=== PATIENT | female | born 1990 | race Caucasian/White ===

== ENCOUNTER 2016-10-05 06:41 | Emergency (ER) | payer BC ==
--- NOTE | ~2016-10-05 | ER ---
PATIENT'S NAME: LOLITA VILLATORO [facility] AGE: 26 Y [address] ROOM: [place] [address] LOCATION: [facility] ADMIT DATE: 10/05/2016 ER/Outpatient Report DISCHARGE DATE: 10/05/2016 FAMILY PHYSICIAN: PHYSICIAN, NO ATTENDING PHYSICIAN: Hugo Paniagua CHIEF COMPLAINT: Ankle pain. I saw this patient in conjunction with Dr. Mccauley, resident. Please see her dictation for complete encounter details. I have personally evaluated this patient. Vital signs: Blood pressure 140/86, pulse 85, respiratory rate 16, temperature 98.5, and SpO2 is 98% on room air. No obvious emergency medical condition exists. She did slip down a rope, but only has injury to her left ankle. The ankle is tender anteriorly with some ecchymosis and edema. No clear tenderness of the posterior aspect of the fibula or head of the 5th metatarsal. There is some tenderness at the tip of the lateral malleolus, however. X-rays were obtained and reviewed by myself, no fractures. We will place her in a walking boot/splint and have her follow up with her primary care or Orthopedics. Discussed appropriate management including ice, anti- inflammatories, and range of motion exercises. All questions answered, and the patient was discharged in good condition. MD MONTSERRAT PHAM/karla /[id number] d: 10/05/1654 t: 10/16/16 0621, OUTPATIENT REPORT
--- NOTE | ~2016-10-05 | ER ---
PATIENT'S NAME: LOLITA VILLATORO [facility] AGE: 26 Y [address] ROOM: [place] [address] LOCATION: [facility] ADMIT DATE: 10/05/2016 ER/Outpatient Report DISCHARGE DATE: 10/05/2016 FAMILY PHYSICIAN: PHYSICIAN, NO ATTENDING PHYSICIAN: Hugo Hadley Time of Arrival: 6:41 a.m. Time of Evaluation: 6:45 a.m. CHIEF COMPLAINT: Left ankle pain. HISTORY OF PRESENT ILLNESS: This is a 26-year-old otherwise healthy female, who presented to the ER with left ankle pain after falling. She reports that she was working out at the gym 30 minutes prior to the arrival and was doing rope climbs when she fell from a height of less than 12 inches. She reports that she fell at an angle on her foot, and did not fall directly down. She was not able to ambulate on the ankle afterwards, but reports that she did not really try given the pain. She did not take anything for pain prior to coming into the ER. She denies any numbness or tingling in her toes currently. PAST MEDICAL HISTORY: Unremarkable. SOCIAL HISTORY: She denies illicit drug use or tobacco use. Occasional alcohol use. MEDICATIONS: None. ALLERGIES: NO KNOWN DRUG ALLERGIES. REVIEW OF SYSTEMS: As per HPI. PHYSICAL EXAMINATION: VITAL SIGNS: Pulse rate was 85, respiratory rate 16, and temperature 98.5. She is 98% on room air. GENERAL: A 26-year-old female appearing in stated age, no apparent distress, alert and oriented x3. EXTREMITIES: Left lower extremity: She has 2+ DP pulses. Normal sensation of all toes. Normal strength in the toes. Significant edema over the lateral PATIENT'S NAME: LOLITA VILLATORO [facility] AGE: 26 Y [address] ROOM: [place], [place] [address] LOCATION: [facility] ADMIT DATE: 10/05/2016 ER/Outpatient Report DISCHARGE DATE: 10/05/2016 FAMILY PHYSICIAN: PHYSICIAN, NO ATTENDING PHYSICIAN: Hugo Hadley aspect of her foot. Tenderness to palpation over the distal lateral malleolus as well as over the lateral dorsal portion of her foot. No bruising or erythema noted. IMAGING DATA: X-ray of the left ankle obtained negative for acute fracture. IMPRESSION: Left ankle sprain. EMERGENCY DEPARTMENT COURSE AND PLAN: The patient is given 800 mg of ibuprofen in the ED. Discussed ankle sprain and proper management including icing several times daily, alternating ibuprofen 800 mg every 8 hours with Tylenol 1 g every 8 hours over the next week. Discussed stretching regularly and followup with her primary care provider. Additionally, she was fitted with an Aircast and given crutches for ambulation over the next week. Handouts given on walking with crutches and ankle sprains. The patient was also seen by Dr. Hugo Hadley, who saw and evaluated the patient, and agrees with the assessment and plan. SLAVA LARSON MD FOR HUGO HADLEY MD CW/modl /[id number] I have seen and evaluated this patient personally. I have reviewed the plan of care as noted above and have dictated a short note as well. Hugo Hadley MD d: 10/05/16 0948 t: 10/16/16 0627, OUTPATIENT REPORT
== END 2016-10-05 07:59 | disposition disaster alternative care site (69) ==
LOC: GACC 06:41
DX: S93.402A Sprain of unspecified ligament of left ankle, initial encounter (principal); Y30.XXXA Falling, jumping or pushed from a high place, undetermined intent, initial encounter; Y93.39 Activity, other involving climbing, rappelling and jumping off; Y92.39 Other specified sports and athletic area as the place of occurrence of the external cause